=== PATIENT | female | born 1935 | race Caucasian/White ===

== ENCOUNTER 2016-08-27 12:40 | Inpatient (IN) | payer MEDICARE, BC ==
[~2016-08-27] VITALS: Ht 160 cm; Wt 97.3 kg
[2016-08-27] VITALS (7 sets, daily range): BP systolic 102–114; BP diastolic 32–58; PULSE 71–93; TEMP 98.1–99.4
[~2016-08-27 12:40] MED LIST: ALLOPURINOL100 MG PO; ASPIR-LOW81 MG PO; CALTRATE-600 W600 MG PO; CELEBREX 200MG200 MG PO; CELEXA40 MG PO; FLONASE NASAL S16 GM NS; GLUCOPHAGE XR500 M1 PO; HCTZ; HYDROCODONE/APAP PO; LASIX 20MG TABL20 MG PO; LISINOPRIL10 MG PO; LISINOPRIL20 MG PO; MAG-OX 400400 MG/TAB PO; MELOXICAM; MELOXICAM7.5 MG PO; METFORMIN500 MG PO; MINOCYCLINE HY100 M1 PO; MIRALAX PA17 GM/Dose PO; MOBIC15 MG PO; MVI; NASONEX SPRAY17 GM NS; NORCO 325 MG-51 TAB PO; OXYCODONE PO; PERCOCET 325 MG1 TA2 PO; PRILOSEC 20MG20 MG PO; PRISTIQ 50 MG T50 MG PO; TRIAMTERENE W/H1 TA1 PO; WARFARIN SODIUM5 MG PO; ZYLOPRIM 100MG100 MG PO; ZYLOPRIM100 MG PO
[2016-08-27] MEDS ORDERED: TYLENOL 500MG500 MG PO (17:09)
[2016-08-27] MEDS ORDERED: ALDACTONE 25MG25 M1 PO (17:10)
[2016-08-27] MEDS ORDERED: AQUAPHOR HEALING41% TP (17:11)
[2016-08-27] MEDS ORDERED: ASPIRIN 81M81 MG/TA2 PO (17:11)
[2016-08-27] MEDS ORDERED: WELLBUTRIN SR150 M1 PO (17:14)
[2016-08-27] MEDS ORDERED: TEMOVATE45CR TOP (17:15)
[2016-08-27] MEDS ORDERED: DULCOLAX S10 MG/SUPP RC (17:17)
[2016-08-27] MEDS ORDERED: LEVEMIR100 U/ML SQ (17:23)
[2016-08-27] MEDS ORDERED: LEXAPRO 10MG10 MG PO (17:25)
[2016-08-27] MEDS ORDERED: MILK OF MA400 MG/52 PO (17:26)
[2016-08-27] MEDS ORDERED: TOPROL XL 25MG25 MG PO (17:27)
[2016-08-27] MEDS ORDERED: PREDNISONE20 MG PO (17:33)
[2016-08-27] MEDS ORDERED: MULTI VITAMINS1 TAB PO (17:33)
[2016-08-27] MEDS ORDERED: PRADAXA 150MG150 MG PO (17:33)
[2016-08-27] MEDS ORDERED: ZOFRAN 4MG T4 MG/TAB PO (17:34)
[2016-08-27 18:20] LABS: MEAN CELL VOLUME 93 fl (80.0-100.0); MEAN CORPUSCULAR HGB CONC 31 g/dl (33.0-37.0); MEAN PLATELET VOLUME 8.6 fl (7.4-10.4); PLATELET COUNT 223 K/mm3 (130-400); RED BLOOD COUNT 2.69 M/mm3 (4.10-5.30); REDCELL DISTRIBUTION WIDTH-CV 15.2 % (11.5-14.5); WHITE BLOOD COUNT 6.6 K/mm3 (4.8-10.8)
[2016-08-27 18:23] LABS: HEMOGLOBIN 7.7 g/dl (12.5-16.0); MEAN CORPUSCULAR HEMOGLOBIN 29 pg (27.0-31.0)
[2016-08-27 18:25] LABS: INR 1.5 (0.8-3.0); PROTHROMBIN TIME 17.1 SECONDS (9.7-12.8)
[2016-08-27 18:35] LABS: ADJUSTED CALCIUM 9.6 mg/dL (8.4-10.2); BILIRUBIN,TOTAL 0.6 mg/dL (0.0-1.0); CALCIUM 8.8 mg/dL (8.4-10.2); CREATININE, serum 0.84 mg/dL (0.52-1.25); POTASSIUM 4.3 mmol/L (3.4-5.0)
[2016-08-27 21:22] LABS: PH 6 (5-8); SQUAMOUS EPITHELIAL 0-2 /hpf; URINE APPEARANCE Clear; URINE BACTERIA Rare /hpf; URINE BILIRUBIN Negative (NEGATIVE); URINE BLOOD 3+ (NEGATIVE); URINE COLOR Yellow; URINE GLUCOSE Negative (NEGATIVE); URINE KETONE Negative (NEGATIVE); URINE RBC >50 /hpf; URINE WBC 20-50 /hpf
[2016-08-28] VITALS (18 sets, daily range): BP systolic 103–130; BP diastolic 37–90; PULSE 63–95; TEMP 96.9–98.2
[2016-08-28 06:10] LABS: BASO % 0.2 % (0.0-2.0); GRAN # 5.4 (1.4-6.5); GRAN % 85.1 % (42.2-75.2); LYMPH # 0.7 (1.2-3.4); MEAN CELL VOLUME 91 fl (80.0-100.0); MEAN CORPUSCULAR HGB CONC 31 g/dl (33.0-37.0); MEAN PLATELET VOLUME 8.6 fl (7.4-10.4); MONO # 0.2 (0.1-0.6); MONO % 3.4 % (1.7-9.3); PLATELET COUNT 206 K/mm3 (130-400); RED BLOOD COUNT 3.47 M/mm3 (4.10-5.30); REDCELL DISTRIBUTION WIDTH-CV 15.3 % (11.5-14.5); WHITE BLOOD COUNT 6.4 K/mm3 (4.8-10.8)
[2016-08-28 06:14] LABS: HEMATOCRIT 31.6 % (37.0-47.0); HEMOGLOBIN 9.9 g/dl (12.5-16.0); MEAN CORPUSCULAR HEMOGLOBIN 29 pg (27.0-31.0)
[2016-08-28 06:23] LABS: CALCIUM 8.7 mg/dL (8.4-10.2); CREATININE, serum 0.79 mg/dL (0.52-1.25)
[2016-08-29 02:21] VITALS: BP 155/48; PULSE 90; TEMP 98
[2016-08-29 04:52] VITALS: BP 131/52; PULSE 84; TEMP 98.4
[2016-08-29 07:40] LABS: HEMATOCRIT 28.1 % (37.0-47.0); HEMOGLOBIN 8.8 g/dl (12.5-16.0)
[2016-08-29 11:00] VITALS: BP 119/55; PULSE 69; TEMP 98
[2016-08-29 12:57] VITALS: BP 116/39; PULSE 66; TEMP 99.2
[2016-08-29 14:32] VITALS: BP 120/47; PULSE 66; TEMP 98.1
[2016-08-29 17:54] VITALS: BP 128/54; PULSE 65; TEMP 98.2
[2016-08-30 01:12] VITALS: BP 140/53; PULSE 56; TEMP 97.6
[2016-08-30 04:52] VITALS: BP 126/52; PULSE 58; TEMP 97.9
[2016-08-30 06:47] LABS: GRAN # 5.1 (1.4-6.5); GRAN % 79.9 % (42.2-75.2); LYMPH # 0.8 (1.2-3.4); LYMPH % 12.5 % (20.0-51.0); MEAN CELL VOLUME 92 fl (80.0-100.0); MEAN CORPUSCULAR HGB CONC 31 g/dl (33.0-37.0); MEAN PLATELET VOLUME 9.2 fl (7.4-10.4); MONO # 0.4 (0.1-0.6); MONO % 6.5 % (1.7-9.3); PLATELET COUNT 221 K/mm3 (130-400); RED BLOOD COUNT 2.93 M/mm3 (4.10-5.30); REDCELL DISTRIBUTION WIDTH-CV 14.9 % (11.5-14.5); WHITE BLOOD COUNT 6.3 K/mm3 (4.8-10.8)
[2016-08-30 06:56] LABS: HEMATOCRIT 26.9 % (37.0-47.0); HEMOGLOBIN 8.3 g/dl (12.5-16.0); MEAN CORPUSCULAR HEMOGLOBIN 28 pg (27.0-31.0)
[2016-08-30] MEDS ORDERED: FERROUS SU325 MG/TAB PO (08:43)
[2016-08-30 08:48] VITALS: BP 133/48; PULSE 52; TEMP 97.8
[2016-08-30] MEDS ORDERED: NS INT FLUSH 1010 ML IV (09:07)
[2016-08-30] MEDS ORDERED: HEPARIN LOCK FLU5 M1 IV (09:07)
[2016-08-30] MEDS ORDERED: PERCOCET 325 MG1 TA2 PO (09:08)
[2016-08-30] MEDS ORDERED: VANCOCIN HCL1 GM IV (11:18)
[2016-08-30 13:11] VITALS: BP 131/96; PULSE 61; TEMP 97.8
[2016-08-30 14:25] VITALS: BP 131/96; PULSE 61; TEMP 97.8
== END 2016-08-30 16:20 | DRG 464 ==
LOC: SURG 12:40
PROVIDERS: Internal Medicine; Nurse Practitioner Family; Orthopaedic Surgery
PROC: 0SUC09C Supplement Right Knee Joint with Liner, Patellar Surface, Open Approach (ICD-10-PCS; 2016-08-28)
PROC: 0SBC0ZZ Excision of Right Knee Joint, Open Approach (ICD-10-PCS; 2016-08-28)
PROC: 0SPC09Z Removal of Liner from Right Knee Joint, Open Approach (ICD-10-PCS; principal; 2016-08-28 09:45)
DX: T84.53XA Infection and inflammatory reaction due to internal right knee prosthesis, initial encounter (principal); L12.0 Bullous pemphigoid; D64.9 Anemia, unspecified; I10 Essential (primary) hypertension; E11.9 Type 2 diabetes mellitus without complications; G20 Parkinson's disease; E66.01 Morbid (severe) obesity due to excess calories; Z68.38 Body mass index [BMI] 38.0-38.9, adult; Z66 Do not resuscitate; G47.33 Obstructive sleep apnea (adult) (pediatric)
CPT/HCPCS: 99223; 99232-AI; 99239; C1713; C1751; C1776; J0690; J0696; J0878; J1100; J1644; J1720; J1815; J1885; J2270; J2405; J2704; J3010; J3260; J3370; J7030; J7050; J7120; J7512; P9016

== ENCOUNTER → 2016-08-28 | Outpatient (CLI) | payer MEDICARE, BC ==
[~2016-08-28] MED LIST changes: +ALDACTONE 25MG25 M1 PO; +AQUAPHOR HEALING41% TP; +ASPIRIN 81M81 MG/TA2 PO; +DULCOLAX S10 MG/SUPP RC; +FERROUS SU325 MG/TAB PO; +HEPARIN LOCK FLU5 M1 IV; +LEVEMIR100 U/ML SQ; +LEXAPRO 10MG10 MG PO; +MILK OF MA400 MG/52 PO; +MULTI VITAMINS1 TAB PO; +NS INT FLUSH 1010 ML IV; +PRADAXA 150MG150 MG PO; +PREDNISONE20 MG PO; +TEMOVATE45CR TOP; +TOPROL XL 25MG25 MG PO; +TYLENOL 500MG500 MG PO; +VANCOCIN HCL1 GM IV; +WELLBUTRIN SR150 M1 PO; +ZOFRAN 4MG T4 MG/TAB PO
== END ==
LOC: COL.LAB 09:09
DX: Z53.9 Procedure and treatment not carried out, unspecified reason (principal)

== ENCOUNTER → 2016-09-16 | Outpatient (REF) | LOC: ZAIV 06:10 | DX: Z09 Encounter for follow-up examination after completed treatment for conditions other than malignant neoplasm (principal) ==